=== PATIENT | male | born 1990 | race Caucasian/White ===

== ENCOUNTER 2025-08-25 10:36 | Emergency (ER) | payer OTHER, SELFPAY ==
[2025-08-25 10:37] VITALS: BP 171/108
[2025-08-25 11:56] LABS: Hematocrit 45.0 % (39.0-52.0); Hemoglobin 16.1 g/dL (13.0-18.0); Mean Corp Hgb Conc. 35.8 g/dL (33.0-37.0); Mean Corpuscular Volume 89.3 fL (80.0-94.0); Nucleated Red Blood Cells % 0 % (-); Platelet Count 238 10^3/uL (130-400); Red Cell Dist. Width 11.7 % (11.5-14.5)
[2025-08-25 12:14] LABS: ALT (SGPT) 49 U/L (0-50); AST (SGOT) 32 U/L (17-59); Albumin 4.7 g/dl (3.5-5.0); Alkaline Phosphatase 86 U/L (38-126); Blood Urea Nitrogen 15 mg/dl (9-20); Calcium 10.0 mg/dl (8.4-10.2); Carbon Dioxide 25 mmol/L (22-30); Chloride 100 mmol/L (98-107); Glucose 245 mg/dl (70-99); Magnesium 1.7 mg/dl (1.6-2.3); Potassium 4.6 mmol/L (3.5-5.1); Sodium 135 mmol/L (135-145); Total Protein 7.8 g/dl (6.3-8.2); eGFR > 60.00
[2025-08-25 12:44] LABS: TSH 1.41 uIU/ml (0.47-4.68)
[2025-08-25 12:47] VITALS: BP 145/120
[2025-08-25 13:11] LABS: Depakane 50.5 ug/ml (50.0-120.0)
--- NOTE | 2025-08-25 14:23 | ED.GENMED ---
History of Present Illness
General
Chief Complaint: Abnormal Lab Value
Source: patient
Exam Limitations: none
Time Seen by Provider: 08/25/25 11:14
Nursing documentation reviewed up to this point in time: agreed with
History of Present Illness
History of Present Illness:
Patient with history of diabetes and bipolar disorder, presents to ED secondary to intermittent episodes of tremor of his left hand along with generalized 'jittery' feeling over the past 2 weeks. Patient had an outpatient blood work ordered by his
primary care physician as well as psychiatrist, which had revealed low Depakote level. Denies fever or chills. Denies headache. Denies nausea or vomiting. Denies recent change in medications or diet. Denies loss of sensation or weakness.
Denies headache. Denies dizziness. Of note, patient states that he was taking large quantity of energy drinks, which he has been trying to taper off. Patient has decreased energy drink consumption, and has replaced it with coffee. Patient does
state that he tries to drink enough water as well.
Past History
Past History
ED Past Medical History: NIDDM and Psychiatric
ED Past Surgical History: Negative Cardiac
Social History
Tobacco: Non-smoker
Alcohol: None
Drug: None
Personal: Single
Living: with family
Employment: Employed
Family History
Family History: Diabetes
Review of Systems
Review of Systems
Allergies reviewed?: Yes
All Other Systems: ROS reviewed and negative except as documented in HPI and ROS
Constitutional: Reports no symptoms; Denies fever or chills
Respiratory: Reports no symptoms; Denies trouble breathing
Cardiac: Reports no symptoms; Denies chest pain or palpitations
ABD/GI: Reports no symptoms; Denies vomiting or diarrhea
Musculoskeletal: Reports no symptoms
Skin: Reports no symptoms
Neurological: Reports other (Tremor); Denies dizzy, headache, weakness or numbness
Phy Exam
Physical Exam
Physical Exam:
Physical Exam
General: no apparent distress, not acutely ill. afebrile. overweight
Head: nc/at. eomi
Neck: supple. normal range of motion.
Heart: s1/s2 regular rate and rhythm
Lungs: no acute respiratory distress. clear bilaterally
Abdomen: normal bowel sounds. not tender.
Neuro: alert and oriented x 3. no focal neurological deficits
Skin: no rash
Psychiatric: well kept. interactive and cooperative
Extremities: no edema. no calf tenderness.
Course
Orders/Labs/Results
Orders:
Orders
08/25/25 11:50
Complete Blood Count/With Diff Urgent
Comprehensive Metabolic Panel Urgent
Magnesium Urgent
TSH Urgent
08/25/25 12:22
Depakane Urgent
08/25/25 12:35
0.9% Sodium Chloride 500 ml [Nss] 500 ml IV BOLUS
Abnormal Lab Results
08/25/25
11:50
MCH 31.9 H pg
(27.0-31.0)
Creatinine 0.6 L mg/dL
(0.7-1.3)
Glucose 245 H mg/dl
(70-99)
08/25/25 11:50
08/25/25 11:50
Vital Signs
Initial and Last Documented VS:
Initial Vital Signs
Temp Pulse Resp BP Pulse Ox
97.7 F 101 18 171/108 98
08/25/25 10:37 08/25/25 10:37 08/25/25 10:37 08/25/25 10:37 08/25/25 10:37
Last Documented Vital Signs
Temp Pulse Resp BP Pulse Ox
97.7 F 88 16 145/120 97
08/25/25 10:37 08/25/25 12:47 08/25/25 12:47 08/25/25 12:47 08/25/25 14:23
MDM/Problems Addressed
MDM/Problems Addressed:
Patient with an unremarkable workup in ED, including blood work. Patient otherwise remains afebrile, hemodynamically stable, and neurologically intact, without any evidence of tremor or other abnormal neurological symptoms. Patient reportedly with
recent blood work showing elevated hemoglobin A1c. As such, patient will be referred to outpatient in flight crew member for further evaluation and treatment. Patient expressed understanding, at time of discharge, to the care of his family.
*Pulse Oximetry
SaO2: 97
Oxygen Mode of Delivery: Room air
Patient hypoxic: no
*Critical Care Note
Total Time (30-74mins, 75-104mins- exclusive of procedures): Not Applicable
ED Attending Note
-
Portions of this chart may have been created with voice recognition software.� Occasional wrong word or��sound alike� substitutions may have occurred due to the inherent limitations of voice recognition software.
Discharge Plan
Departure
Patient Disposition: Home (Routine Discharge)
Date of Disposition: 08/25/25
Time of Disposition: 14:27
Patient with high blood pressure during this ER visit?: Yes
Condition: Good
Discharge Problem:
Tremor, Hyperglycemia
Instructions: Tremor, High blood sugar in adults - ED (DC)
Prescriptions:
No Action
cephalexin [Keflex] 750 MG capsule
750 mg PO QID Qty: 20 0RF
doxycycline hyclate 100 MG capsule
100 mg PO Q12 Qty: 14 0RF
Referrals:
Darlene Marie DO [Family Provider, Family Practice]
Lana Gallardo NP [Specified Professional Personl]
Activity Restrictions/Additional Instructions:
As discussed, please follow-up with your primary care physician and/or referred to in flight crew member for further evaluation and treatment.
Interventions
Interventions:
*Risk Screen - Suicide Last Done: 08/25/25 10:37
*General Assessment Last Done: 08/25/25 10:37
*Neglect/Abuse Screening Last Done: 08/25/25 10:37
*ED COVID-19 Vaccine History Last Done: 08/25/25 10:37
*ED Influenza Vaccine History Last Done: 08/25/25 10:37
*Nursing Disposition Last Done: 08/25/25 14:37
Discharge Date and Time
Discharge Date/Time: 08/25/25 14:37
Print Language: THAI
== END 2025-08-25 14:37 | disposition home or self-care (01) ==
LOC: EMR 10:36
PROVIDERS: EMERGENCY PHYSICIAN Emergency Medicine; FAMILY PHYSICIAN Family Medicine
DX: R25.1 Tremor, unspecified (principal); E11.65 Type 2 diabetes mellitus with hyperglycemia
CPT/HCPCS: 99283; 80053; 80164; 83735; 84443; 85025

== ENCOUNTER → 2025-08-27 14:01 | Outpatient (REF) | payer OTHER, SELFPAY ==
--- NOTE | 2025-08-27 15:56 | PN.DE ---
Diabetes Education
- -
08/27/2025 1:1 DIABETES EDUCATION
Met with Raj today. Was recently in the ER for hand tremors, and his BS was elevated. He requested diabetes education consult, individual. I provided him with DM booklet, reviewed complications, BS goals, A1c goals, signs of hyper and
hypoglycemia, hypoglycemia protocol and self care.
He has a PMH of Bipolar, tapering off Depakote over the next 5 months and will transition to Lamtrigine (states this will help keep his BS lower). His A1c in October 2024 was 11%, prescribed Mounjaro 5 mg and A1c in April was 9.4%. His mother mixed
up mher Mounjaro dose of 0.5 mg with his prescription and his A1c increased. He has been back on 5 mg dose for 6 weeks, A1c on 08/21 was 10.1%.
He is also prescribed Glipizide 10 mg BID and Repaglinide 2 mg BID. He take this after meals, I provided education that both medications are to be taken 30 minutes before meals. He is adamant about not taking daily insulin injections or
consideration of a pump.
He is planning to join [employer] this month, will perform cardio 30-45 minutes and weight training 3-4 days a week. He is a former wrestler and football player. He admits to skipping meals, leading to overeating at the next meal. Drinks a lot
of water each day. Has lost 80 lbs in the past 2.5 years, current weight at 300 lbs with a goal weight of 250 lbs.
He will ask his provider for a refill of test strips and lancets, BS today was 221 fasting since morning. I provided a coupon for a free CGM, he will ask his PCP to order understanding it may get denied since he is not on insulin. He is
considering ordering an OTC CGM as well.
He set the following goals:
1. take oral DM medications prior to meals
2. join gym and begin working out 3 days a week
3. SMBG with glucometer QD.
I provided him with the CPT codes for 1:1 DM education, RD education initial and ongoing. He plans to call his insurance company to discuss coverage and copay. He also states he will find the money for this education. Follow up appointment set
for 09/10/2025 3:30pm.
== END ==
LOC: DES 14:01
PROVIDERS: ATTENDING PHYSICIAN Family Medicine
DX: E11.65 Type 2 diabetes mellitus with hyperglycemia (principal)
CPT/HCPCS: 99078

== ENCOUNTER → 2025-09-10 15:14 | Outpatient (REF) | payer OTHER, SELFPAY ==
--- NOTE | 2025-09-10 16:03 | PN.DE ---
Diabetes Education
- -
09/10/2025 DIABETES EDUCATION CONSULTATION
He visted his PCP, Mounjaro dose increased to 7.5 mg once a week. His first dose was today. He states with the 5 mg dose, his appetite diminished but by day 5 his appetite was normal. Advised him to call PCP if this continues with 7.5 mg. His next
appt is 12/03/2025, she wants a full 3 months on the current Mounjaro dose before ordering a new A1c. He plans to call an energy crop farmer for appointment in 2025, states he is limited in funds and cannot afford another copay at this time.
He remembered to take Glipizide and Repaglinide 30 minutes before meals 4 out of 7 days for the past 2 weeks. States his schedule is crazy which leads to him forgetting the proper timing.
Raj joined [employer], plans to start working out tomorrow with a goal of 4 days a week combining cardiovascular and weight training. States he plans 1-2 hours per visit. I provided education that exercise will lower glucose for hours after
the workout and help him lose weight and build muscle.
He has monitored his BS fasting, mostly around 220, states he didn't write it down but can remember. Once his fasting was 156 in the morning because he did not have an evening snack. He typically snacks on potato chips or pretzels, loves salt.
Also states he has to eat 400 calories with Depakote for absorption. He asked for an OTC brand of glucose testing supplies by email.
He wants to focus on changing his diet, cannot afford a coapy for an RD. Wants to focus on his snacks. He has [employer] PB [employer] Crackers at 220 calories. I provided him with a healthy snack list, discussed importance of whole foods and pairing
carbohydrates with proteins. Calculated a 400 calorie snack with his PB & Crackers, add either a medium apple or banana (100 calories), and low fat cheese for 70 calories. I provided education that high fat foods will keep his BS elevated for
hours, change to low fat dairy, avoid fried foods. I also asked him to record his nighttime snack and fasting blood sugar the following morning for at least 5 days. He states he will call or email to review, plans to call mid September to discuss
taking October 2025 DSME class. Will follow up by phone in 2 weeks. I also sent an email to him at [email or web address] with [facility] glucose testing supplies, goals of gym 4 days a week, call endo, and check BS each morning and record PM snack.
== END ==
LOC: DES 15:14
PROVIDERS: ATTENDING PHYSICIAN Family Medicine
DX: E11.65 Type 2 diabetes mellitus with hyperglycemia (principal)
CPT/HCPCS: 99078